=== PATIENT | male | born 1980 | race African-American/Black ===

== ENCOUNTER 2018-03-26 18:24 | Emergency (ER) | payer SELFPAY ==
[~2018-03-26] VITALS: Ht 160 cm; Wt 65.8 kg
[2018-03-26] MEDS ORDERED: MIDAZOLAM HCL/PF 5 MG/5 ML VIAL. IM ONE ×2 (18:30→19:45)
[2018-03-26] MEDS ORDERED: MAGNESIUM SULFATE 1GM 100 ML IV ONE (18:45)
[2018-03-26] MEDS ORDERED: IV NORMAL SALINE 1000ML BAG 1,000 ML IV ONE (19:45)
[2018-03-26 20:17] LABS: BASO # 0.1 x10^3/uL (0.0-0.2); BASO % 1 % (0-3); EOS # 0.1 x10^3/uL (0.0-0.7); EOS % 1 % (0-3); HEMATOCRIT 48.8 % (39.0-53.0); HEMOGLOBIN 17.5 g/dL (13.0-17.5); LYMPH # 1.8 x10^3/uL (1.0-4.8); LYMPH % 17 % (24-48); MEAN CORPUSCULAR HEMOGLOBIN 35 pg (25-35); MEAN CORPUSCULAR HGB CONC 36 g/dL (31-37); MEAN CORPUSCULAR VOLUME 98 fL (79-100); MONO # 0.8 x10^3/uL (0.0-1.1); MONO % 8 % (0-9); NEUT # 7.6 x10^3uL (1.8-7.7); NEUT % 73 % (31-73); PLATELET COUNT 367 x10^3/uL (140-400); RED BLOOD COUNT 4.97 x10^6/uL (4.30-5.70); WHITE BLOOD COUNT 10.4 x10^3/uL (4.0-11.0)
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
[2018-03-26 20:25] LABS: CALCIUM 10.1 mg/dL (8.5-10.1); CREATININE 1.2 mg/dL (0.7-1.3); GFR 68.1
[2018-03-26 20:31] LABS: ALBUMIN 3.9 g/dL (3.4-5.0); ALBUMIN/GLOBULIN RATIO 0.7 (1.0-1.7); TOTAL BILIRUBIN 0.3 mg/dL (0.2-1.0); TOTAL PROTEIN 9.3 g/dL (6.4-8.2)
[2018-03-26] MEDS ORDERED: DEXTROSE 50% 25 GM / 50ML DISP.SYRIN. IV ONE (21:45)
[2018-03-27] VITALS: BP 114/74
--- NOTE | 2018-03-28 06:46 | EKG ---
[facility] [address] [place] [address] Test Date: 2018-03-26 Test Time: 18:30:05 Pat Name: JOSÉ MIGUEL QUINONES Department: Room: Gender: M Team Cdl Driver: : 1980 Requested By: EDWARD JONES Order Number: [id number] Reading MD: Nasim Barrow MD Measurements Intervals [place] Rate: 112 P: 46 WA: 142 QRS: 45 QRSD: 90 T: 22 QT: 306 QTc: 419 Interpretive Statements SINUS TACHYCARDIA Electronically Signed On 03-28-2018 15:18:14 TUBING DRIER by Nasim Barrow MD
== END 2018-03-27 01:15 | disposition home or self-care (01) ==
LOC: ER 18:24
DX: F16.20 Hallucinogen dependence, uncomplicated (principal); R45.1 Restlessness and agitation; R06.4 Hyperventilation; R00.0 Tachycardia, unspecified; M62.838 Other muscle spasm
CPT/HCPCS: 36415; 80053; 82962; 85025; 93005; 96372; 96374; 99285; J2250; J7030; 99284; J7042

== ENCOUNTER 2019-11-12 13:10 | Emergency (ER) | payer SELFPAY ==
[~2019-11-12] VITALS: Ht 160 cm; Wt 77.0 kg
[2019-11-12 13:26] VITALS: BP 165/96
[2019-11-12] MEDS ORDERED: HYDROcodone/APAP 5/325MG 1 TAB TABLET PO ONE (13:30)
[2019-11-12] MEDS ORDERED: ORPHENADRINE CITRATE 60 MG/2 ML VIAL. IM ONE (13:30)
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
--- NOTE | 2019-11-12 13:59 | RAD ---
Right shoulder 3 views 11/12/2019. Reason for exam: Pain after injury a day ago. No fracture or dislocation is seen. There is no significant joint narrowing or evidence of destructive process. IMPRESSION: No acute findings. Electronically signed by: Juan Miguel Cruz Jr., MD (11/12/2019 1:56 PM) [id number]
[2019-11-12] MEDS ORDERED: CYCL10TA2 PO (14:13)
[2019-11-12] MEDS ORDERED: NAPR-514 PO (14:13)
== END 2019-11-12 14:25 | disposition home or self-care (01) ==
LOC: ER 13:10
DX: I10 Essential (primary) hypertension (principal); M25.511 Pain in right shoulder; M54.5 Low back pain; F12.90 Cannabis use, unspecified, uncomplicated; F19.90 Other psychoactive substance use, unspecified, uncomplicated; F17.200 Nicotine dependence, unspecified, uncomplicated; Z98.890 Other specified postprocedural states
CPT/HCPCS: 73030; 96372; 99283; J2360

== ENCOUNTER 2020-02-17 07:22 | Emergency (ER) | payer SELFPAY ==
[~2020-02-17] VITALS: Ht 160 cm; Wt 75.0 kg
[~2020-02-17 07:22] MED LIST: CYCL10TA2 PO; NAPR-514 PO
[2020-02-17 07:28] VITALS: BP 152/84
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
[2020-02-17] MEDS ORDERED: BENZ100C PO (07:41)
[2020-02-17] MEDS ORDERED: FLUT9.9S NS (07:41)
[2020-02-17] MEDS ORDERED: IBUP-1007 PO (07:41)
[2020-02-17] MEDS ORDERED: IBUPROFEN 200 MG TABLET. PO ONE (07:45)
--- NOTE | 2020-02-17 07:55 | RAD ---
EXAM: AP View of the chest DATE: 02/17/2020 7:35 AM INDICATION: cough COMPARISON: No Prior FINDINGS: The heart is not enlarged. Mediastinal and hilar contours are normal. No focal parenchymal airspace opacity. Metallic density projects over the left lower lung, possibly within or overlying the chest No pleural effusion or pneumothorax. IMPRESSION: 1. No radiographic evidence for acute cardiopulmonary process. Electronically signed by: Baron Menchaca MD (02/17/2020 7:52 AM) [id number]
--- NOTE | 2020-02-19 15:47 | NUR ---
IP: No phone number available to inform pt of negative COVID test.
--- NOTE | 2020-02-26 14:24 | NUR ---
IP: Pt called to get COVID results, Informed him it was negative. Pt verbalized understanding.
== END 2020-02-17 08:05 | disposition home or self-care (01) ==
LOC: ER 07:22
DX: H11.32 Conjunctival hemorrhage, left eye (principal); Z20.828 Contact with and (suspected) exposure to other viral communicable diseases; R05 Cough; R09.81 Nasal congestion; F17.200 Nicotine dependence, unspecified, uncomplicated; F12.90 Cannabis use, unspecified, uncomplicated; F19.90 Other psychoactive substance use, unspecified, uncomplicated; Z98.890 Other specified postprocedural states
CPT/HCPCS: 71045; 99284; U0003